=== PATIENT | female | born 1960 | race Two or more races ===

== ENCOUNTER 2017-09-01 07:30 | Outpatient (CLI) | payer OTHER | END 2017-09-01 07:33 | disposition home or self-care (01) | LOC: SONOGRAMA 07:30 | DX: E04.1 Nontoxic single thyroid nodule (principal) ==

== ENCOUNTER 2019-11-01 08:03 | Outpatient (CLI) | payer OTHER | END 2019-11-01 08:04 | disposition home or self-care (01) | LOC: SONOGRAMA 08:03 | PROVIDERS: ATTEND Pathology Anatomic Pathology | DX: E04.2 Nontoxic multinodular goiter (principal) ==

== ENCOUNTER 2021-11-26 08:30 | Inpatient (IN) | payer OTHER ==
[~2021-11-26] VITALS: Ht 154.9 cm; Wt 79.4 kg
[2021-11-26] MEDS ORDERED: METFORMIN HCL500 M3 PO (10:50)
[2021-11-26] MEDS ORDERED: ZESTRIL20 MG PO (10:50)
[2021-11-28] MEDS ORDERED: TIZANIDINE HCL2 M1 (13:08)
[2021-11-28] MEDS ORDERED: DICLOFENAC SODI75 MG (13:08)
== END 2021-12-01 19:37 | DRG 743 ==
LOC: SURH 11-28 08:30 → O/R 11-28 09:08 → OB/GYN 11-28 18:17
PROVIDERS: ADMIT Obstetrics & Gynecology; ATTEND Obstetrics & Gynecology
PROC: 0UT70ZZ Resection of Bilateral Fallopian Tubes, Open Approach (ICD-10-PCS; 2021-11-28)
PROC: 0UT10ZZ Resection of Left Ovary, Open Approach (ICD-10-PCS; 2021-11-28)
PROC: 0UT90ZZ Resection of Uterus, Open Approach (ICD-10-PCS; principal; 2021-11-28 08:45)
DX: D25.1 Intramural leiomyoma of uterus (principal); N84.0 Polyp of corpus uteri; N72 Inflammatory disease of cervix uteri; N84.1 Polyp of cervix uteri; Z20.822 Contact with and (suspected) exposure to COVID-19